=== PATIENT | female | born 1990 | race American Indian/Alaskan Native ===

== ENCOUNTER 2018-01-23 13:44 | Emergency (ER) | payer OTHER ==
[2018-01-23 13:58] VITALS: BP 120/72
--- NOTE | 2018-01-23 16:10 | Ultrasound Report ---
FINAL REPORT PROCEDURE: US OB transabdominal and TRANSVAGINAL TECHNIQUE: Real-time transabdominal and transvaginal sonography of the uterus, placenta, amniotic fluid, adnexa, and fetus was performed with image documentation. Measurements were obtained to determine age/size. M-mode Doppler was used to document heartbeat. CPT 26308 and 26079 HISTORY: pain, bleeding. COMPARISON: No prior studies are available for comparison. FINDINGS: Uterus measures 14.9 x 6.0 x 8.1 centimeters CRL: 36.5 mm, which corresponds to a gestational age of: 10 weeks, 4 days. Yolk Sac: Not visualized Embryonic Cardiac Activity: None visualized Gestational Sac: Mildly lobular contour Cervix: Endocervical fluid is present Right Ovary: 1 centimeter cyst is present Left Ovary: Normal. IMPRESSION: Findings are compatible with 1st trimester demise
--- NOTE | 2018-01-23 16:11 | Ultrasound Report ---
FINAL REPORT PROCEDURE: US OB transabdominal and TRANSVAGINAL TECHNIQUE: Real-time transabdominal and transvaginal sonography of the uterus, placenta, amniotic fluid, adnexa, and fetus was performed with image documentation. Measurements were obtained to determine age/size. M-mode Doppler was used to document heartbeat. CPT 25517 and 49679 HISTORY: pain, bleeding. COMPARISON: No prior studies are available for comparison. FINDINGS: Uterus measures 14.9 x 6.0 x 8.1 centimeters CRL: 36.5 mm, which corresponds to a gestational age of: 10 weeks, 4 days. Yolk Sac: Not visualized Embryonic Cardiac Activity: None visualized Gestational Sac: Mildly lobular contour Cervix: Endocervical fluid is present Right Ovary: 1 centimeter cyst is present Left Ovary: Normal. IMPRESSION: Findings are compatible with 1st trimester demise PROCEDURE: TECHNIQUE: HISTORY: COMPARISON: FINDINGS: IMPRESSION:
--- NOTE | 2018-01-23 17:05 | Emergency Department Report ---
ED HPI - General Chief complaint: Vaginal Bleeding Stated complaint: MISCARRIAGE 11 WKS Time Seen by Provider: 01/23/18 16:31 Source: patient Mode of arrival: Ambulatory Limitations: No Limitations - History of Present Illness Initial comments: Patient is a 27-year-old female who is presenting with 5 days of crampy lower abdominal discomfort as well as vaginal bleeding. Patient has had some very small clots come out.. Patient states the pain is a 6 out of 10 in severity. Patient is approximately 11 weeks has had ultrasound to confirm Associated symptoms: vaginal bleeding, abdominal pain. denies: nausea/vomiting , vaginal discharge, dysuria, headache, vision changes, malaise, dysparuenia, rash, seizure, shortness of breath, syncope, weakness - Related Data Previous Rx's Medication Instructions Recorded Last Taken Type Promethazine [Phenergan TAB] 25 mg PO Q6HR PRN #15 tab 03/23/15 Unknown Rx Nitrofurantoin [place]/M-Cryst 100 mg PO Q12HR #14 capsule 04/08/15 Unknown Rx [Macrobid CAP] Phenazopyridine [Pyridium] 100 mg PO TID #6 tab 04/08/15 Unknown Rx Ibuprofen [Motrin] 600 mg PO Q8H PRN #15 tablet 01/23/18 Unknown Rx traMADol [Ultram] 50 mg PO Q6HR PRN #10 tablet 01/23/18 Unknown Rx Allergies Allergy/AdvReac Type Severity Reaction Status Date / Time No Known Allergies Allergy Verified 04/08/15 11:15 ED Review of Systems ROS: Stated complaint: MISCARRIAGE 11 WKS Other details as noted in HPI Comment: All other systems reviewed and negative ED Past Medical Hx - Past Medical History Hx Diabetes: Yes (GESTATIONAL) Additional medical history: CHF WITH . UMBILICAL HERNIA - Surgical History Additional Surgical History: X 2 - Social History Smoking Status: Never Smoker Substance Use Type: None - Medications Home Medications: Home Medications Medication Instructions Recorded Confirmed Last Taken Type Promethazine [Phenergan TAB] 25 mg PO Q6HR PRN #15 tab 03/23/15 Unknown Rx Nitrofurantoin [place]/M-Cryst 100 mg PO Q12HR #14 capsule 04/08/15 Unknown Rx [Macrobid CAP] Phenazopyridine [Pyridium] 100 mg PO TID #6 tab 04/08/15 Unknown Rx Ibuprofen [Motrin] 600 mg PO Q8H PRN #15 tablet 01/23/18 Unknown Rx traMADol [Ultram] 50 mg PO Q6HR PRN #10 tablet 01/23/18 Unknown Rx ED Physical Exam - General Limitations: No Limitations General appearance: alert, in no apparent distress - Head Head exam: Present: atraumatic, normocephalic - Eye Eye exam: Present: normal appearance - ENT ENT exam: Present: mucous membranes moist - Neck Neck exam: Present: normal inspection - Respiratory Respiratory exam: Present: normal lung sounds bilaterally. Absent: respiratory distress - Cardiovascular Cardiovascular Exam: Present: regular rate, normal rhythm. Absent: systolic murmur, diastolic murmur, rubs, gallop - GI/Abdominal GI/Abdominal exam: Present: soft, normal bowel sounds - Extremities Exam Extremities exam: Present: normal inspection - Back Exam Back exam: Present: normal inspection - Neurological Exam Neurological exam: Present: alert, oriented X3 - Psychiatric Psychiatric exam: Present: normal affect, normal mood - Skin Skin exam: Present: warm, dry, intact, normal color. Absent: rash ED Course Vital Signs 01/23/18 13:56 Temperature 98 F Pulse Rate 97 H Respiratory 16 Rate Blood Pressure 120/72 O2 Sat by Pulse 99 Oximetry ED Medical Decision Making - Lab Data Lab Results 01/23/18 01/23/18 Range/Units 14:01 14:01 HCG, Quant 540.8 H (0-4) mIU/mL Blood Type O POSITIVE - Radiology Data Patient: USAMA HSIEH MR#: [id number] : 1990 Acct:[id number] Age/Sex: 27 / F ADM Date: 01/23/18 Loc: ED Attending Dr: Ordering Physician: ED MD LENNOX Date of Service: 01/23/18 Procedure(s): US OB transvaginal Accession Number(s): [id number] cc: ED MD LENNOX FINAL REPORT PROCEDURE: US OB transabdominal and TRANSVAGINAL TECHNIQUE: Real-time transabdominal and transvaginal sonography of the uterus, placenta, amniotic fluid, adnexa, and fetus was performed with image documentation. Measurements were obtained to determine age/size. M-mode Doppler was used to document heartbeat. CPT 83974 and 69986 HISTORY: pain, bleeding. COMPARISON: No prior studies are available for comparison. FINDINGS: Uterus measures 14.9 x 6.0 x 8.1 centimeters CRL: 36.5 mm, which corresponds to a gestational age of: 10 weeks, 4 days. Yolk Sac: Not visualized Embryonic Cardiac Activity: None visualized Gestational Sac: Mildly lobular contour Cervix: Endocervical fluid is present Right Ovary: 1 centimeter cyst is present Left Ovary: Normal. IMPRESSION: Findings are compatible with 1st trimester demise - Medical Decision Making Patient is a 27-year-old female who has had a missed . 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 Critical care attestation.: If time is entered above; I have spent that time in minutes in the direct care of this critically ill patient, excluding procedure time. ED Disposition Clinical Impression: Missed Disposition: DC-01 TO HOME OR SELFCARE Is pt being admited?: No Does the pt Need Aspirin: No Condition: Stable Instructions: Spontaneous Miscarriage (ED) Prescriptions: Ibuprofen [Motrin] 600 mg PO Q8H PRN #15 tablet PRN Reason: Pain traMADol [Ultram] 50 mg PO Q6HR PRN #10 tablet PRN Reason: Pain Referrals: PRIMARY CARE, [Primary Care Provider] - 3-5 Days
== END 2018-01-23 17:24 | disposition home or self-care (01) ==
LOC: ED 13:44
DX: O02.1 Missed abortion (principal); Z3A.11 11 weeks gestation of pregnancy
CPT/HCPCS: 36415; 76801; 76817; 84702; 86900; 86901

== ENCOUNTER 2019-06-17 15:06 | Emergency (ER) | payer OTHER ==
[2019-06-17] MEDS ORDERED: IBUPROFEN 600 MG TAB PO ONE (15:23)
--- NOTE | 2019-06-17 15:23 | Event Note ---
ED Screening Note ED Screening Note: +cough +fever V/D began 4 days ago LNMP: 06/16/19 PMHx CHF dx in 2012, has not taken medications in 4 years no allergies to meds This initial assessment/diagnostic orders/clinical plan/treatment(s) is/are subject to change based on patients health status, clinical progression and re- assessment by fellow clinical providers in the ED. Further treatment and workup at subsequent clinical providers discretion. Patient/guardian urged not to elope from the ED as their condition may be serious if not clinically assessed and managed. Initial orders include: CXR
--- NOTE | 2019-06-17 15:46 | XRay Report ---
CHEST 2 VIEWS INDICATION: MAIN: cough, fever; C/O CHEST PAIN X 4 DAYS. " I THINK I HAVE THE FLU. ALSO C/O N/V/D. COMPARISON: FINDINGS: Support devices: None. Heart: Within normal limits. Lungs: Faint airspace changes present right lower lobe. Pleura: No significant pleural effusion. No pneumothorax. Additional findings: None. IMPRESSION: 1. Pneumonia right lower lobe Signer Name: Benito Means MD Signed: 06/17/2019 3:41 PM Workstation Name: [email or web address] - innovate | mentor | [id number]
[2019-06-17 15:54] VITALS: BP 123/81
--- NOTE | 2019-06-17 16:03 | Emergency Department Report ---
ED General Adult HPI - General Chief complaint: Chest Pain Stated complaint: CHEST PAIN/CHF Time Seen by Provider: 06/17/19 15:21 Source: patient Mode of arrival: Ambulatory Limitations: No Limitations - History of Present Illness Initial comments: 28-year-old obese -[place] female with a past medical history of CHF presents much department complaining of 4 day history of cough coryza myalgia also H fever mucus production malaise with nausea. She reports no hemoptysis, no hematemesis or hematochezia. Radiation: non-radiation Severity scale (0 -10): 0 Consistency: constant Improves with: none Worsens with: none Treatments Prior to Arrival: none - Related Data Previous Rx's Medication Instructions Recorded Last Taken Type Promethazine [Phenergan TAB] 25 mg PO Q6HR PRN #15 tab 03/23/15 Unknown Rx Nitrofurantoin [place]/M-Cryst 100 mg PO Q12HR #14 capsule 04/08/15 Unknown Rx [Macrobid CAP] Phenazopyridine [Pyridium] 100 mg PO TID #6 tab 04/08/15 Unknown Rx Ibuprofen [Motrin] 600 mg PO Q8H PRN #15 tablet 01/23/18 Unknown Rx traMADoL [Ultram] 50 mg PO Q6HR PRN #10 tablet 01/23/18 Unknown Rx ALBUTEROL Inhaler (OR & NICU) 1 puff IH Q4-6H PRN #1 inha 06/17/19 Unknown Rx [ProAir HFA Inhaler] Azithromycin [Zithromax] 500 mg PO QDAY #5 tablet 06/17/19 Unknown Rx guaiFENesin/CODEINE [Robitussin AC] 5 ml PO Q6H PRN #120 ml 06/17/19 Unknown Rx Allergies Allergy/AdvReac Type Severity Reaction Status Date / Time No Known Allergies Allergy Verified 06/17/19 15:06 ED Review of Systems ROS: Stated complaint: CHEST PAIN/CHF Other details as noted in HPI Comment: All other systems reviewed and negative ED Past Medical Hx - Past Medical History Hx Diabetes: Yes (GESTATIONAL) Additional medical history: CHF WITH . UMBILICAL HERNIA - Surgical History Additional Surgical History: X 2 - Social History Smoking Status: Current Every Day Smoker Substance Use Type: Alcohol - Medications Home Medications: Home Medications Medication Instructions Recorded Confirmed Last Taken Type Promethazine [Phenergan TAB] 25 mg PO Q6HR PRN #15 tab 03/23/15 Unknown Rx Nitrofurantoin [place]/M-Cryst 100 mg PO Q12HR #14 capsule 04/08/15 Unknown Rx [Macrobid CAP] Phenazopyridine [Pyridium] 100 mg PO TID #6 tab 04/08/15 Unknown Rx Ibuprofen [Motrin] 600 mg PO Q8H PRN #15 tablet 01/23/18 Unknown Rx traMADoL [Ultram] 50 mg PO Q6HR PRN #10 tablet 01/23/18 Unknown Rx ALBUTEROL Inhaler (OR & NICU) 1 puff IH Q4-6H PRN #1 inha 06/17/19 Unknown Rx [ProAir HFA Inhaler] Azithromycin [Zithromax] 500 mg PO QDAY #5 tablet 06/17/19 Unknown Rx guaiFENesin/CODEINE [Robitussin AC] 5 ml PO Q6H PRN #120 ml 06/17/19 Unknown Rx ED Physical Exam - General Limitations: No Limitations General appearance: alert, in no apparent distress - Head Head exam: Present: atraumatic, normocephalic - Eye Eye exam: Present: normal appearance, PERRL, EOMI Pupils: Present: normal accommodation - ENT ENT exam: Present: normal exam, normal orophraynx, mucous membranes moist - Neck Neck exam: Present: normal inspection - Respiratory Respiratory exam: Present: normal lung sounds bilaterally. Absent: respiratory distress, rhonchi, stridor, accessory muscle use, decreased breath sounds - Cardiovascular Cardiovascular Exam: Present: regular rate, normal rhythm. Absent: systolic murmur, diastolic murmur, rubs, gallop - GI/Abdominal GI/Abdominal exam: Present: soft, normal bowel sounds. Absent: tenderness, guarding, hyperactive bowel sounds, hypoactive bowel sounds, organomegaly - Extremities Exam Extremities exam: Present: normal inspection, normal capillary refill - Back Exam Back exam: Present: normal inspection. Absent: CVA tenderness (R), CVA tenderness (L) - Neurological Exam Neurological exam: Present: alert, oriented X3, CN II-XII intact, normal gait - Psychiatric Psychiatric exam: Present: normal affect, normal mood - Skin Skin exam: Present: warm, dry, intact, normal color. Absent: rash, diaphoretic, erythema, pallor, abrasion ED Course Vital Signs 06/17/19 06/17/19 06/17/19 15:14 15:24 15:53 Temperature 100.3 F H 99.2 F Pulse Rate 111 H 98 H 94 H Respiratory 20 16 Rate Blood Pressure 135/88 Blood Pressure 123/81 [Left] O2 Sat by Pulse 96 99 98 Oximetry ED Medical Decision Making - Radiology Data Radiology results: report reviewed [facility] [address] [place] [address] XRay Report Signed Patient: USAMA HSIEH MR#: [id number] : 1990 Acct:[id number] Age/Sex: 28 / F ADM Date: 06/17/19 Loc: ED Attending Dr: Ordering Physician: JAMIE FUNES Date of Service: 06/17/19 Procedure(s): XR chest routine 2V Accession Number(s): [id number] cc: JAMIE FUNES Fluoro Time In Minutes: CHEST 2 VIEWS INDICATION: MAIN: cough, fever; C/O CHEST PAIN X 4 DAYS. " I THINK I HAVE THE FLU. ALSO C/O N/V/D. COMPARISON: FINDINGS: Support devices: None. Heart: Within normal limits. Lungs: Faint airspace changes present right lower lobe. Pleura: No significant pleural effusion. No pneumothorax. Additional findings: None. IMPRESSION: 1. Pneumonia right lower lobe Signer Name: Benito Means MD Signed: 06/17/2019 3:41 PM Workstation Name: [id number] Transcribed By: WG Dictated By: Benito Means MD Electronically Authenticated By: Benito Means MD Signed Date/Time: 06/17/19 154 DD/ 154 - Medical Decision Making presents with shortness of breath, cough, and malaise concerning for pneumonia. Workup: CXR Defer lab work at this time given patient well appearing with stable vital signs and without recent hospitalization or care facility stay Given History, Exam, and Workup presentation most consistent with pneumonia.Presentation not consistent with PE, COPD exacerbation, Pneumothorax, TB, Atypical ACS, Esophageal Rupture, Toxic Exposure, Foreign Body Airway Obstruction. Findings: Single Focus Consolidation on CXR Rx: Amoxicillin 1 g three times x7days Disposition: Discharge home. Return precautions discussed at bedside and patient in agreement with plan. Prompt follow up with primary care provider advised. Critical care attestation.: If time is entered above; I have spent that time in minutes in the direct care of this critically ill patient, excluding procedure time. ED Disposition Clinical Impression: Pneumonia involving right lung Disposition: DC-01 TO HOME OR SELFCARE Is pt being admited?: No Does the pt Need Aspirin: No Condition: Stable Instructions: Bacterial Pneumonia (ED), Community-acquired Pneumonia (ED) Additional Instructions: Pneumonia is a lung infection that can cause a fever, cough, and trouble breathing. Please continue all antibiotics as directed until complete. Nutrition is important - eat small frequent meals. Get lots of rest and drink fluids. Call your Primary Care Doctor upon arrival home from the hospital and make a follow-up appointment in 2-3 days. If your cough worsens, you develop a fever greater than XXX, you develop shaking chills, a fast heartbeat, trouble breathing and/or feel you are are breathing much faster than usual, call your Primary Care Doctor or return to the ED. Make sure you wash your hands frequently. Referrals: MADDIE FLORES MD [Staff Physician] - 3-5 Days
== END 2019-06-17 16:27 | disposition home or self-care (01) ==
LOC: ED 15:06
DX: J18.9 Pneumonia, unspecified organism (principal); F17.200 Nicotine dependence, unspecified, uncomplicated
CPT/HCPCS: 71046; 93005; 93010; 99283

== ENCOUNTER 2019-09-09 18:11 | Emergency (ER) | payer SELFPAY ==
--- NOTE | 2019-09-09 18:25 | Event Note ---
ED Screening Note ED Screening Note: fever cough body aches This initial assessment/diagnostic orders/clinical plan/treatment(s) is/are subject to change based on patients health status, clinical progression and re- assessment by fellow clinical providers in the ED. Further treatment and workup at subsequent clinical providers discretion. Patient/guardian urged not to elope from the ED as their condition may be serious if not clinically assessed and managed. Initial orders include: cxr
[2019-09-09] MEDS ORDERED: ACETAMINOPHEN 325 MG TAB PO ONE (18:26)
[2019-09-09] MEDS ORDERED: ACETAMINOPHEN 325 MG TAB ONE (18:28)
--- NOTE | 2019-09-09 19:30 | XRay Report ---
CHEST 2 VIEWS, 09/09/2019 6:34 PM INDICATION: Cough. History of pneumonia. COMPARISON: Chest radiograph, 06/17/2019 FINDINGS: Support devices: None Heart: The heart is normal in size. Lungs/pleura: The lungs are clear of focal airspace disease or significant pleural effusion. Additional findings: No significant acute abnormality. IMPRESSION: 1. No evidence of acute cardiopulmonary process. Signer Name: Marietta Gutierrez MD Signed: 09/09/2019 7:26 PM Workstation Name: [id number]
--- NOTE | 2019-09-09 20:07 | Emergency Department Report ---
Minor Respiratory - HPI Chief Complaint: Upper Respiratory Infection Stated Complaint: FLU SYM/CHILLS Time Seen by Provider: 09/09/19 19:21 Duration: 1 Day Pain Location: Throat, Nose, Chest Severity: moderate Minor Respiratory: Yes Rhinorrhea, Yes Sore Throat, Yes Able to Tolerate Fluids, Yes Cough, Yes Sick Contacts, Yes Chest Pain, Yes Fever, No Ear Pain, No Hemopty sis, No Shortness of Breath Other History: This is a 28-year-old -Citizen Of [place] female who presents to the emergency room with sore throat, fever, chills, myalgia, and congestion since yesterday. Past medical history of gestational diabetes and CHF with . Patient denies taking anything for symptomatic relief. Denies recent travel. She denies abdominal pain, nausea, vomiting, diarrhea, shortness of breath, and palpitations. ED Review of Systems ROS: Stated complaint: FLU SYM/CHILLS Other details as noted in HPI Constitutional: chills, fever ENT: throat pain, congestion. denies: ear pain, dental pain, hearing loss, epistaxis Respiratory: cough. denies: shortness of breath, wheezing Cardiovascular: denies: chest pain, palpitations Gastrointestinal: denies: abdominal pain, nausea, diarrhea Musculoskeletal: myalgia. denies: back pain, joint swelling, arthralgia Skin: denies: rash, lesions Neurological: headache. denies: weakness, paresthesias Psychiatric: denies: anxiety, depression ED Past Medical Hx - Past Medical History Hx Diabetes: Yes (GESTATIONAL) Additional medical history: CHF WITH . UMBILICAL HERNIA - Surgical History Additional Surgical History: X 2 - Social History Smoking Status: Current Every Day Smoker Substance Use Type: Alcohol - Medications Home Medications: Home Medications Medication Instructions Recorded Confirmed Last Taken Type Promethazine [Phenergan TAB] 25 mg PO Q6HR PRN #15 tab 03/23/15 Unknown Rx Nitrofurantoin [place]/M-Cryst 100 mg PO Q12HR #14 capsule 04/08/15 Unknown Rx [Macrobid CAP] Phenazopyridine [Pyridium] 100 mg PO TID #6 tab 04/08/15 Unknown Rx Ibuprofen [Motrin] 600 mg PO Q8H PRN #15 tablet 01/23/18 Unknown Rx traMADoL [Ultram] 50 mg PO Q6HR PRN #10 tablet 01/23/18 Unknown Rx Albuterol INH(or & Nicu Only) 1 puff IH Q4-6H PRN #1 inha 06/17/19 Unknown Rx [ProAir HFA Inhaler] Azithromycin [Zithromax] 500 mg PO QDAY #5 tablet 06/17/19 Unknown Rx guaiFENesin/CODEINE [Robitussin AC] 5 ml PO Q6H PRN #120 ml 06/17/19 Unknown Rx Benzonatate [Tessalon Perles] 100 mg PO Q8HR PRN #30 capsule 09/09/19 Unknown Rx Fluticasone [Flonase] 1 spray NS QDAY #1 bottle 09/09/19 Unknown Rx Oseltamivir [Tamiflu] 75 mg PO BID #10 cap 09/09/19 Unknown Rx Minor Respiratory Exam - Exam General: Vital signs noted. No distress. Alert and acting appropriately. HEENT: Yes Pharyngeal Erythema (Erythematous posterior pharynx, uvula midline), Yes Moist Mucous Membranes, Yes Rhinorrhea (Turbinates congested with clear discharge), No Pharyngeal Exudates, No Conjuctival Injection, No Frontal Tenderness, No Maxillary Tenderness Ear: Neither TM Bulge, Neither TM Erythema, Neither EAC Pain, Neither EAC Discharge Neck: Yes Supple, No Adenopathy Lungs: Yes Good Air Exchange, No Wheezes, No Ronchi, No Stridor, No Cough, No Labored Respirations, No Retractions, No Use of Accessory Muscles, No Other Abnormal Lung Sounds Heart: Yes Regular, No Murmur Abdomen: Yes Normal Bowel Sounds, No Tenderness, No Peritoneal Signs Skin: No Rash, No Edema Neurologic: Alert and oriented, no deficits. Musculoskeletal: Unremarkable. ED Course Vital Signs 09/09/19 18:24 Temperature 103 F H Pulse Rate 109 H Respiratory 20 Rate Blood Pressure 133/88 O2 Sat by Pulse 100 Oximetry Vital Signs 09/09/19 09/09/19 18:24 20:30 Temperature 103 F H 99.5 F Pulse Rate 109 H 101 H Respiratory 20 18 Rate Blood Pressure 133/88 Blood Pressure 125/74 [Left] O2 Sat by Pulse 100 98 Oximetry ED Medical Decision Making - Radiology Data Radiology results: report reviewed CHEST 2 VIEWS, 09/09/2019 6:34 PM INDICATION: Cough. History of pneumonia. COMPARISON: Chest radiograph, 06/17/2019 FINDINGS: Support devices: None Heart: The heart is normal in size. Lungs/pleura: The lungs are clear of focal airspace disease or significant pleural effusion. Additional findings: No significant acute abnormality. IMPRESSION: 1. No evidence of acute cardiopulmonary process. - Medical Decision Making This is a 28-year-old female who presents with fever, cough, sore throat, and body aches for 1 day. No significant past medical history. Denies nausea, vomiting, diarrhea, wheezing, shortness of breath. Given analgesics. Work-up: Chest x-ray. No evidence of acute cardiopulmonary process. Temperature is trending down. Patient tolerating oral fluids in ER. Will treat for viral syndrome. Start antivirals, decongestant, cough suppressant, and continue analgesics. Treat outpatient with supportive care. Discussed plan of care with mother. Patient agree with emergency room plan. DFollow-up with primary care provider in 2 to 3 days. Patient discharged home stable with strict return instructions. Critical care attestation.: If time is entered above; I have spent that time in minutes in the direct care of this critically ill patient, excluding procedure time. ED Disposition Clinical Impression: Acute viral syndrome, Cough in adult, Chest wall discomfort Disposition: - TO HOME OR SELFCARE Is pt being admited?: No Condition: Stable Instructions: Viral Syndrome (ED), Cold Symptoms (ED) Additional Instructions: Avoid large crowds to prevent transmission of virus. Increase fluid intake to prevent dehydration. Wash hands frequently. Take Tylenol or ibuprofen every 4-6 hours for relief of headache, fever, and body aches. Return to work after 24 hours of being fever free. Follow up with primary care doctor in 2-3 days if symptoms are not improving. Prescriptions: Fluticasone [Flonase] 1 spray NS QDAY #1 bottle Oseltamivir [Tamiflu] 75 mg PO BID #10 cap Benzonatate [Tessalon Perles] 100 mg PO Q8HR PRN #30 capsule PRN Reason: Cough Referrals: [facility] [Outside] - 3-5 Days [facility] [Outside] - 3-5 Days [facility] [Outside] - 3-5 Days Forms: Work/School Release Form(ED) Time of Disposition: 20:29
[2019-09-09 20:32] VITALS: BP 125/74
== END 2019-09-09 20:58 | disposition home or self-care (01) ==
LOC: ED 18:11
DX: B34.9 Viral infection, unspecified (principal); R07.89 Other chest pain
CPT/HCPCS: 71046; 99283

== ENCOUNTER 2021-03-30 20:37 | Emergency (ER) | payer SELFPAY ==
[2021-03-30] MEDS ORDERED: diphenhydrAMINE 50 MG/ML VIAL IV ONE (21:07)
[2021-03-30] MEDS ORDERED: SODIUM CHLORIDE 0.9% 500 ML 500 ML IV ONE (21:07)
[2021-03-30] MEDS ORDERED: methylPREDNISolone Sod Succinate 125 MG/2 ML INJ IV ONE (21:07)
[2021-03-30] MEDS ORDERED: FAMOTIDINE 20 MG/2 ML INJ IV ONE (21:07)
--- NOTE | 2021-03-30 21:12 | Emergency Department Report ---
ED Allergic Reaction HPI - General Chief complaint: Allergic Reaction Stated complaint: ALLERGIC REACTION Time Seen by Provider: 03/30/21 21:03 Source: patient Mode of arrival: Ambulatory Limitations: No Limitations - History of Present Illness Initial Comments: Patient is 30 years old female with history of congestive heart failure. Patient presented to the ER for evaluation of possible allergic reaction to insect bite. Patient stated that she was in a park with her kids and all of a sudden she started having itching and swelling in her extremities. Patient also complained of shortness of breath. Patient denied any difficulty swallowing or feeling her throat is closing. Patient stated that she took Benadryl p.o. with no improvement. Upon arrival to the ER patient is alert, oriented x3 no acute distress. Patient with generalized itching. Vital signs stable. Patient received Benadryl, Solu-Medrol and Pepcid. MD Complaint: allergic reaction, hives -: Sudden Exposure: insect bite Symptoms: rash, itching, difficulty breathing. denies: facial swelling, lip swelling, difficulty swallowing, orolingual swelling, hoarseness, syncopy, dizziness Severity: moderate Treatment Prior to Arrival: benadryl Previous Allergy History: none - Related Data Previous Rx's Medication Instructions Recorded Last Taken Type Promethazine [Phenergan TAB] 25 mg PO Q6HR PRN #15 tab 03/23/15 Unknown Rx Nitrofurantoin [place]/M-Cryst 100 mg PO Q12HR #14 capsule 04/08/15 Unknown Rx [Macrobid CAP] Phenazopyridine [Pyridium] 100 mg PO TID #6 tab 04/08/15 Unknown Rx Ibuprofen [Motrin] 600 mg PO Q8H PRN #15 tablet 01/23/18 Unknown Rx traMADoL [Ultram] 50 mg PO Q6HR PRN #10 tablet 01/23/18 Unknown Rx Albuterol Mdi (or & Nicu Only) 1 puff IH Q4-6H PRN #1 inha 06/17/19 Unknown Rx [ProAir HFA Inhaler] Azithromycin [Zithromax] 500 mg PO QDAY #5 tablet 06/17/19 Unknown Rx guaiFENesin/CODEINE [Robitussin AC] 5 ml PO Q6H PRN #120 ml 06/17/19 Unknown Rx Benzonatate [Tessalon Perles] 100 mg PO Q8HR PRN #30 capsule 09/09/19 Unknown Rx Fluticasone [Flonase] 1 spray NS QDAY #1 bottle 09/09/19 Unknown Rx Oseltamivir [Tamiflu] 75 mg PO BID #10 cap 09/09/19 Unknown Rx Allergies Allergy/AdvReac Type Severity Reaction Status Date / Time No Known Allergies Allergy Verified 09/09/19 18:13 ED Review of Systems ROS: Stated complaint: ALLERGIC REACTION Other details as noted in HPI Comment: All other systems reviewed and negative Constitutional: denies: chills, fever Respiratory: shortness of breath. denies: cough, SOB with exertion, SOB at rest, wheezing Cardiovascular: denies: chest pain, palpitations Gastrointestinal: denies: abdominal pain, nausea, vomiting Musculoskeletal: denies: back pain Neurological: denies: headache, weakness, numbness, paresthesias, confusion, abnormal gait ED Past Medical Hx - Past Medical History Previous Medical History?: Yes Hx Congestive Heart Failure: Yes (Gestational) Hx Diabetes: Yes (GESTATIONAL) Additional medical history: CHF WITH . UMBILICAL HERNIA. Morbid obesity - Surgical History Past Surgical History?: Yes Additional Surgical History: X 2 - Social History Smoking Status: Current Every Day Smoker Substance Use Type: None - Medications Home Medications: Home Medications Medication Instructions Recorded Confirmed Last Taken Type Promethazine [Phenergan TAB] 25 mg PO Q6HR PRN #15 tab 03/23/15 Unknown Rx Nitrofurantoin [place]/M-Cryst 100 mg PO Q12HR #14 capsule 04/08/15 Unknown Rx [Macrobid CAP] Phenazopyridine [Pyridium] 100 mg PO TID #6 tab 04/08/15 Unknown Rx Ibuprofen [Motrin] 600 mg PO Q8H PRN #15 tablet 01/23/18 Unknown Rx traMADoL [Ultram] 50 mg PO Q6HR PRN #10 tablet 01/23/18 Unknown Rx Albuterol Mdi (or & Nicu Only) 1 puff IH Q4-6H PRN #1 inha 06/17/19 Unknown Rx [ProAir HFA Inhaler] Azithromycin [Zithromax] 500 mg PO QDAY #5 tablet 06/17/19 Unknown Rx guaiFENesin/CODEINE [Robitussin AC] 5 ml PO Q6H PRN #120 ml 12/06/19 Unknown Rx Benzonatate [Tessalon Perles] 100 mg PO Q8HR PRN #30 capsule 09/09/19 Unknown Rx Fluticasone [Flonase] 1 spray NS QDAY #1 bottle 09/09/19 Unknown Rx Oseltamivir [Tamiflu] 75 mg PO BID #10 cap 09/09/19 Unknown Rx ED Physical Exam - General Limitations: No Limitations General appearance: alert, in no apparent distress, anxious - Head Head exam: Present: atraumatic, normocephalic, normal inspection - Eye Eye exam: Present: normal appearance, PERRL - ENT ENT exam: Present: normal exam, normal orophraynx, mucous membranes moist - Neck Neck exam: Present: normal inspection, full ROM. Absent: tenderness, meningismus - Respiratory Respiratory exam: Present: normal lung sounds bilaterally. Absent: respiratory distress, wheezes, rales, rhonchi, chest wall tenderness, accessory muscle use, decreased breath sounds, prolonged expiratory - Cardiovascular Cardiovascular Exam: Present: tachycardia - GI/Abdominal GI/Abdominal exam: Present: soft, normal bowel sounds. Absent: distended, tenderness, guarding, rebound, rigid, organomegaly, mass, bruit, pulsatile mass, hernia - Extremities Exam Extremities exam: Present: normal inspection, full ROM, normal capillary refill. Absent: tenderness, pedal edema, joint swelling, calf tenderness - Back Exam Back exam: Present: normal inspection, full ROM - Neurological Exam Neurological exam: Present: alert, oriented X3, CN II-XII intact - Psychiatric Psychiatric exam: Present: anxious - Skin Skin exam: Present: warm, dry, intact, rash, urticaria ED Course Vital Signs 03/30/21 03/30/21 20:48 21:27 Temperature 98.2 F Pulse Rate 134 H 100 H Respiratory 18 20 Rate Blood Pressure 135/79 Blood Pressure 117/82 [Right] O2 Sat by Pulse 100 100 Oximetry ED Medical Decision Making - Medical Decision Making Patient is 30 years old female with history of congestive heart failure. Patient presented to the ER for evaluation of possible allergic reaction to insect bite. Patient stated that she was in a park with her kids and all of a sudden she started having itching and swelling in her extremities. Patient also complained of shortness of breath. Patient denied any difficulty swallowing or feeling her throat is closing. Patient stated that she took Benadryl p.o. with no improvement. Upon arrival to the ER patient is alert, oriented x3 no acute distress. Patient with generalized itching. Vital signs stable. Patient received Benadryl, Solu-Medrol and Pepcid. Patient stated that she is feeling much better. Vital signs stable with an oxygen saturation of 100% on room air. Patient given prescription for prednisone, Benadryl and Pepcid and advised to follow-up with her primary care physician in the next 2 to 3 days and to return to the ER if she develop any new symptoms. Critical care attestation.: If time is entered above; I have spent that time in minutes in the direct care of this critically ill patient, excluding procedure time. ED Disposition Clinical Impression: Acute allergic reaction Disposition: 01 HOME / SELF CARE / HOMELESS Is pt being admited?: No Condition: Stable Instructions: Allergies, Adult, [id number] Referrals: PRIMARY CARE, [Primary Care Provider] - 3-5 Days
[2021-03-30 23:47] VITALS: BP 134/82
== END 2021-03-31 00:10 | disposition home or self-care (01) ==
LOC: ED 20:37
DX: S80.869A Insect bite (nonvenomous), unspecified lower leg, initial encounter (principal); L03.119 Cellulitis of unspecified part of limb; F17.210 Nicotine dependence, cigarettes, uncomplicated; W57.XXXA Bitten or stung by nonvenomous insect and other nonvenomous arthropods, initial encounter; Y93.89 Activity, other specified; Y92.830 Public park as the place of occurrence of the external cause; Y99.8 Other external cause status
CPT/HCPCS: 96374; 96375; 99283; J1200; J2930; J7040